=== PATIENT | male | born 1970 | race Two or more races ===

== ENCOUNTER 2016-08-16 17:47 | Inpatient (IN) | payer MEDICARE, OTHER ==
[~2016-08-16] VITALS: Ht 170.2 cm; Wt 63.9 kg
[2016-08-16 19:01] LABS: Urine Bilirubin Negative (Negative); Urine Blood Negative /uL (Negative); Urine Ketone Negative (Negative); Urine Nitrite Negative (Negative); Urine RBC <1 /hpf (0 - 3); Urine Urobilinogen Normal (Negative); Urine pH 7.5 (5.0-8.0)
[2016-08-16 19:09] LABS: Urine Color Straw (Yellow); Urine Glucose 4+ mg/dL (Normal)
[2016-08-16 19:11] LABS: Basophils # (auto) 0 uL; Basophils % (auto) 0.4 % (0.0-2.0); Eosinophils # (auto) 0.1 uL; Hemoglobin 16.4 g/dL (13.5-17.5); Lymphocytes # (auto) 2.4 uL; Lymphocytes % (auto) 34.5 % (10.0-50.0); Mean Corpuscular Hgb Conc. 32.7 g/dL (32.0-36.0); Mean Corpuscular Volume 91.7 fL (80.0-100.0); Mean Platelet Volume 9.6 fL (7.4-10.4); Monocytes # (auto) 0.4 uL; Neutrophils % (auto) 58.1 % (37.0-80.0); Platelet Count (auto) 208 10^3/uL (140-450); White Blood Cell 6.9 10^3/uL (4.4-10.8)
[2016-08-16 19:23] LABS: Albumin 3.7 g/dL (3.4-5.0); Anion Gap 9 (5-15); Aspartate Aminotransferase 81 U/L (15-37); BUN/Creatinine Ratio 7.9; Blood Urea Nitrogen 7 mg/dL (7-18); Calcium 9.2 mg/dL (8.5-10.1); Carbon Dioxide 28 mmol/L (21-32); Chloride 94 mmol/L (98-107); GFR African American 119 mL/min; GFR Non-African American 99 mL/min; Potassium 4.5 mmol/L (3.5-5.1); Salicylate 1.7 mg/dL (2.8-20.0); Sodium 131 mmol/L (136-145)
[2016-08-16 19:26] LABS: Alkaline Phosphatase 227 U/L (45-117); Bilirubin, Total 0.2 mg/dL (0.2-1.0); Total Protein 7.5 g/dL (6.4-8.2)
[2016-08-16 19:30] LABS: Acetaminophen < 2.0 ug/mL (10-30)
[2016-08-16 19:33] LABS: Glucose 610 mg/dL (74-106)
[2016-08-16] MEDS ORDERED: SODIUM CHLORIDE 0.9% 1,000 ML IV ONE (20:15)
[2016-08-16] MEDS ORDERED: InsuLIN REG 1unit/0.01ml Soln (100units/ml) IV ONE (20:15)
[2016-08-16 20:18] LABS: Amylase 65 U/L (25-115)
[2016-08-16] MEDS ORDERED: OLANZapine 5 MG TAB PO ONE (21:30)
[2016-08-16] MEDS: SODIUM CHLORIDE 0.9% 1,000 ML IV SCH (23:35)
[2016-08-16] MEDS ORDERED: NITROGLYCERIN 0.4 MG SL TAB SL PRN (23:45)
[2016-08-16] MEDS ORDERED: DEXTROSE (50%) 50ML SYRG IV PRN (23:45)
[2016-08-16] MEDS ORDERED: LACTULOSE 20Gm/30ML SOLN PO PRN (23:45)
[2016-08-16] MEDS ORDERED: MORPHINE SULF INJ 2 MG/ML SYRINGE 1ML IV PRN (23:45)
[2016-08-17] MEDS: ACCU-CHEK COMFORT CURVE STRIP VI SCH ×6 (02:00→22:11)
[2016-08-17] MEDS: InsuLIN REG 1unit/0.01ml Soln (100units/ml) SC SCH ×6 (02:00→22:10)
[2016-08-17 02:38] VITALS: BP 94/66
[2016-08-17] MEDS: SODIUM CHLORIDE 0.9% 1,000 ML IV SCH ×3 (06:13→22:08)
[2016-08-17 06:30] LABS: Potassium 3.3 mmol/L (3.5-5.1)
[2016-08-17 06:35] LABS: Albumin 2.8 g/dL (3.4-5.0); BUN/Creatinine Ratio 14.3; Calcium 8.2 mg/dL (8.5-10.1)
[2016-08-17 06:37] LABS: Bilirubin, Total 0.3 mg/dL (0.2-1.0); Total Protein 5.8 g/dL (6.4-8.2)
[2016-08-17 06:45] LABS: Hematocrit 40.2 % (41.0-53.0); Hemoglobin 13.1 g/dL (13.5-17.5); Mean Corpuscular Hemoglobin 29.7 pg (28.0-32.0); Mean Corpuscular Hgb Conc. 32.7 g/dL (32.0-36.0); Mean Corpuscular Volume 90.8 fL (80.0-100.0); Mean Platelet Volume 9.8 fL (7.4-10.4); Platelet Count (auto) 189 10^3/uL (140-450); Red Cell Distribution Width 13.9 % (11.6-16.0); White Blood Cell 5.6 10^3/uL (4.4-10.8)
[2016-08-17 06:47] LABS: Metamyelocytes % 0; Myelocytes % 0; Promyelocytes % 0; Reactive Lymphocytes 0
[2016-08-17 08:13] LABS: Large Platelets FEW; Platelet Estimate Adequate
[2016-08-17 08:30] VITALS: BP 106/60
[2016-08-17] MEDS ORDERED: ENOXAPARIN SOD 40 MG/0.4 ML SYRINGE SC SCH (10:00)
[2016-08-17] MEDS ORDERED: ENOXAPARIN SOD 30 MG/0.3 ML SYRINGE SC SCH (10:00)
[2016-08-17] MEDS: OLANZapine 5 MG TAB PO SCH (10:11)
[2016-08-17 11:21] LABS: Hematocrit 38.8 % (41.0-53.0); Hemoglobin 12.6 g/dL (13.5-17.5)
[2016-08-17] MEDS: FREE WATER GT SCH ×3 (14:00→22:09)
[2016-08-17] MEDS: LORazepam 0.5 MG TAB PO PRN (14:13)
[2016-08-17 16:52] LABS: Hematocrit 38.4 % (41.0-53.0); Hemoglobin 12.5 g/dL (13.5-17.5)
[2016-08-17 17:51] VITALS: BP 97/64
[2016-08-17 21:10] VITALS: BP 109/63
[2016-08-18] MEDS: FREE WATER GT SCH ×3 (02:28→10:02)
[2016-08-18] MEDS: InsuLIN REG 1unit/0.01ml Soln (100units/ml) SC SCH ×7 (02:28→22:00)
[2016-08-18] MEDS: ACCU-CHEK COMFORT CURVE STRIP VI SCH ×6 (02:29→21:52)
[2016-08-18 05:10] VITALS: BP 102/69
[2016-08-18] MEDS: SODIUM CHLORIDE 0.9% 1,000 ML IV SCH ×2 (05:17→10:00)
[2016-08-18 08:49] VITALS: BP 112/67
[2016-08-18] MEDS: OLANZapine 5 MG TAB PO SCH (09:44)
[2016-08-18] MEDS: LORazepam 0.5 MG TAB PO PRN ×2 (09:56→18:13)
[2016-08-18] MEDS ORDERED: FOLIC ACID 1 MG in D5W 5% 50 ML IV ONE (10:45)
[2016-08-18] MEDS ORDERED: DEXTROSE (50%) 50ML SYRG IV PRN (10:45)
[2016-08-18] MEDS ORDERED: THIAMINE HCL 100 MG/ML 2ML VIAL IV ONE (10:45)
[2016-08-18] MEDS ORDERED: HALOPERIDOL 5 MG TAB PO ONE (10:45)
[2016-08-18] MEDS: INSULIN DETEMIR(LEVEMIR) 1unit/0.01ml Soln (100units/ml) SC SCH ×3 (11:36→22:00)
[2016-08-18 13:11] VITALS: BP 109/70
[2016-08-18 17:14] VITALS: BP 104/69
[2016-08-18] MEDS: HALOPERIDOL 1 MG TAB PO SCH ×2 (18:09→22:00)
[2016-08-18 20:59] VITALS: BP 119/70
[2016-08-19] MEDS: SODIUM CHLORIDE 0.9% 1,000 ML IV SCH ×2 (02:30→09:25)
[2016-08-19 05:39] VITALS: BP 99/66
[2016-08-19] MEDS: HALOPERIDOL 1 MG TAB PO SCH (05:55)
[2016-08-19] MEDS: LORazepam 0.5 MG TAB PO PRN (05:55)
[2016-08-19 06:19] LABS: Albumin 2.7 g/dL (3.4-5.0); BUN/Creatinine Ratio 16.3; Bilirubin, Total 0.3 mg/dL (0.2-1.0); Calcium 8.4 mg/dL (8.5-10.1); Potassium 3.7 mmol/L (3.5-5.1); Total Protein 5.5 g/dL (6.4-8.2)
[2016-08-19] MEDS: ACCU-CHEK COMFORT CURVE STRIP VI SCH ×2 (06:29→11:12)
[2016-08-19] MEDS: InsuLIN REG 1unit/0.01ml Soln (100units/ml) SC SCH ×2 (06:29→11:53)
[2016-08-19 09:34] VITALS: BP 103/65
[2016-08-19] MEDS: INSULIN DETEMIR(LEVEMIR) 1unit/0.01ml Soln (100units/ml) SC SCH (09:36)
[2016-08-19] MEDS ORDERED: FOLIC ACID 1 MG in D5W 5% 50 ML IV SCH (10:00)
[2016-08-19] MEDS ORDERED: THIAMINE HCL 100 MG/ML 2ML VIAL IV SCH (10:00)
[2016-08-19 12:27] VITALS: BP 108/70
[2016-08-19] MEDS ORDERED: INSULIN DETEMIR(LEVEMIR) 1unit/0.01ml Soln (100units/ml) SC SCH (22:00)
== END 2016-08-19 13:09 | disposition home or self-care (01) | DRG 638 ==
LOC: ER 18:03 → TELE 18:04 → TELE-CENTR 08-17 02:05 → CENTRAL 08-18 23:56
PROVIDERS: ADMIT Family Medicine; ATTEND Internal Medicine
DX: E10.65 Type 1 diabetes mellitus with hyperglycemia (principal); R45.851 Suicidal ideations; E87.0 Hyperosmolality and hypernatremia; F20.9 Schizophrenia, unspecified; F31.9 Bipolar disorder, unspecified; F41.9 Anxiety disorder, unspecified; F17.210 Nicotine dependence, cigarettes, uncomplicated; E86.0 Dehydration; K76.0 Fatty (change of) liver, not elsewhere classified; F10.10 Alcohol abuse, uncomplicated; E87.6 Hypokalemia; Z91.19 Patient's noncompliance with other medical treatment and regimen; I95.9 Hypotension, unspecified
CPT/HCPCS: 36415; 71010; 76705; 80053; 80329; 81001; 82010; 82150; 82962; 83036; 83690; 85007; 85014; 85018; 85025; 85027; 96361; 96374; G0434; J1815; J7060

== ENCOUNTER 2020-03-01 20:13 | Emergency (ER) | payer OTHER ==
[~2020-03-01] VITALS: Ht 170.2 cm; Wt 54.4 kg
[2020-03-01 21:02] VITALS: BP 117/77
== END 2020-03-02 00:38 | disposition home or self-care (01) ==
LOC: ER 20:13
DX: F41.9 Anxiety disorder, unspecified (principal); Z91.14 Patient's other noncompliance with medication regimen; E11.9 Type 2 diabetes mellitus without complications; F17.210 Nicotine dependence, cigarettes, uncomplicated

== ENCOUNTER 2020-05-07 19:05 | Emergency (ER) | payer OTHER ==
[~2020-05-07] VITALS: Ht 170.2 cm; Wt 54.4 kg
[2020-05-07] MEDS ORDERED: IBUPROFEN 400 MG TAB PO ONE (20:45)
[2020-05-07] MEDS ORDERED: HYDROcodone-ACET 5/325MG TAB PO ONE (20:45)
[2020-05-07 21:04] LABS: Basophils # (auto) 0 10 ^3/uL (0-0.2); Basophils % (auto) 0.8 % (0.0-2.0); Eosinophils # (auto) 0.1 10 ^3/uL (0-0.8); Eosinophils % (auto) 2.1 % (0.0-7.0); Hematocrit 43.7 % (41.0-53.0); Hemoglobin 15.1 g/dL (13.5-17.5); Lymphocytes # (auto) 2.1 10 ^3/uL (0.4-5.4); Lymphocytes % (auto) 43.1 % (10.0-50.0); Mean Corpuscular Hemoglobin 30.7 pg (28.0-32.0); Mean Corpuscular Hgb Conc. 34.5 g/dL (32.0-36.0); Mean Corpuscular Volume 88.9 fL (80.0-100.0); Monocytes # (auto) 0.4 10 ^3/uL (0-1.3); Monocytes % (auto) 8.1 % (0.0-12.0); Neutrophils # (auto) 2.3 10 ^3/uL (1.6-8.6); Neutrophils % (auto) 45.9 % (37.0-80.0); Nucleated Red Blood Cells % 0.1 %; Platelet Count (auto) 205 10^3/uL (140-450); Red Blood Cells 4.92 10^6/uL (4.5-5.90); Red Cell Distribution Width 13.1 % (11.8-14.3); White Blood Cell 4.9 10^3/uL (4.4-10.8)
[2020-05-07 21:23] LABS: Alanine Aminotransferase 107 U/L (16-61); Albumin 3.8 g/dL (3.4-5.0); Blood Urea Nitrogen 15 mg/dL (7-18); Carbon Dioxide 30 mmol/L (21-32); Glucose 374 mg/dL (74-106); Magnesium 2.3 mg/dL (1.6-2.6)
[2020-05-07 21:24] LABS: INR 1.08 (0.9-1.15); Partial Thromboplastin Time 26.5 sec (23.0-31.2)
[2020-05-07 21:35] LABS: Chloride 98 mmol/L (98-107); Potassium 3.7 mmol/L (3.5-5.1); Sodium 134 mmol/L (136-145)
[2020-05-07 21:45] LABS: Anion Gap 6 (5-15)
[2020-05-07 22:03] LABS: Alkaline Phosphatase 174 U/L (45-117); Aspartate Aminotransferase 52 U/L (15-37); BUN/Creatinine Ratio 13.6; Bilirubin, Total 0.4 mg/dL (0.2-1.0); GFR African American 92 mL/min; GFR Non-African American 76 mL/min; Total Protein 7.9 g/dL (6.4-8.2)
[2020-05-07 23:45] VITALS: BP 114/63
== END 2020-05-07 23:49 | disposition home or self-care (01) ==
LOC: ER 19:12
DX: S20.212A Contusion of left front wall of thorax, initial encounter (principal); S20.211A Contusion of right front wall of thorax, initial encounter; F17.210 Nicotine dependence, cigarettes, uncomplicated; E11.9 Type 2 diabetes mellitus without complications; W01.0XXA Fall on same level from slipping, tripping and stumbling without subsequent striking against object, initial encounter; Y93.89 Activity, other specified; Y92.89 Other specified places as the place of occurrence of the external cause; Y99.8 Other external cause status
CPT/HCPCS: 36415; 71046; 80053; 83735; 83880; 84484; 85025; 85610; 85730; 93005

== ENCOUNTER 2020-05-21 15:58 | Emergency (ER) | payer OTHER ==
[~2020-05-21] VITALS: Ht 162.6 cm; Wt 56.7 kg
[2020-05-21 16:48] VITALS: BP 124/77
[2020-05-21 18:32] LABS: Salicylate < 1.7 mg/dL (2.8-20.0)
[2020-05-21 18:33] LABS: Acetaminophen < 2.0 ug/mL (10-30)
== END 2020-05-22 04:47 | disposition home or self-care (01) ==
LOC: ER 15:58
DX: R45.851 Suicidal ideations (principal); F41.9 Anxiety disorder, unspecified; F17.210 Nicotine dependence, cigarettes, uncomplicated; E11.9 Type 2 diabetes mellitus without complications
CPT/HCPCS: 36415; 80320; 80329

== ENCOUNTER 2020-05-27 10:41 | Emergency (ER) | payer OTHER ==
[~2020-05-27] VITALS: Ht 170.2 cm; Wt 54.4 kg
[2020-05-27 11:12] VITALS: BP 102/71
[2020-05-27 12:00] LABS: Alcohol, Urine < 3.0 mg/dL (0-10); Amphetamine Screen, Urine NEGATIVE (NEGATIVE); Barbiturate Scree,Urine NEGATIVE (NEGATIVE); Benzodiazephine Screen, Urine NEGATIVE (NEGATIVE); Cannabinoid Screen, Urine NEGATIVE (NEGATIVE); Cocaine Screen, Urine NEGATIVE (NEGATIVE); Opiate Scree,Urine NEGATIVE (NEGATIVE); Phencyclidine Screen, Urine NEGATIVE (NEGATIVE)
== END 2020-05-27 19:04 | disposition left against medical advice (07) ==
LOC: ER 10:41
DX: F20.9 Schizophrenia, unspecified (principal); F17.210 Nicotine dependence, cigarettes, uncomplicated; E11.9 Type 2 diabetes mellitus without complications
CPT/HCPCS: 36415; 80307; 80320

== ENCOUNTER 2020-09-04 13:15 | Emergency (ER) | payer OTHER ==
[~2020-09-04] VITALS: Ht 170.2 cm; Wt 54.4 kg
[2020-09-04 14:09] LABS: Basophils # (auto) 0.1 10 ^3/uL (0-0.2); Basophils % (auto) 1.5 % (0.0-2.0); Eosinophils # (auto) 0.1 10 ^3/uL (0-0.8); Eosinophils % (auto) 1.2 % (0.0-7.0); Hematocrit 40.3 % (41.0-53.0); Hemoglobin 13.6 g/dL (13.5-17.5); Lymphocytes # (auto) 1.8 10 ^3/uL (0.4-5.4); Lymphocytes % (auto) 38.7 % (10.0-50.0); Mean Corpuscular Hemoglobin 30.3 pg (28.0-32.0); Mean Corpuscular Hgb Conc. 33.8 g/dL (32.0-36.0); Mean Corpuscular Volume 89.7 fL (80.0-100.0); Monocytes # (auto) 0.4 10 ^3/uL (0-1.3); Monocytes % (auto) 7.8 % (0.0-12.0); Neutrophils # (auto) 2.3 10 ^3/uL (1.6-8.6); Neutrophils % (auto) 50.8 % (37.0-80.0); Platelet Count (auto) 226 10^3/uL (140-450); Red Blood Cells 4.49 10^6/uL (4.5-5.90); Red Cell Distribution Width 12.8 % (11.8-14.3); White Blood Cell 4.5 10^3/uL (4.4-10.8)
[2020-09-04 14:14] LABS: Urine Bacteria NONE SEEN /hpf (None Seen); Urine Blood Negative /uL (Negative); Urine Specific Gravity 1.039 (1.001-1.035); Urine WBC 1 /hpf (0 - 3)
[2020-09-04 14:31] LABS: Albumin 3.6 g/dL (3.4-5.0); Anion Gap 5 (5-15); Blood Urea Nitrogen 8 mg/dL (7-18); Carbon Dioxide 29 mmol/L (21-32); Chloride 97 mmol/L (98-107); Potassium 4.4 mmol/L (3.5-5.1); Sodium 131 mmol/L (136-145)
[2020-09-04 14:35] LABS: Alanine Aminotransferase 102 U/L (16-61); Alkaline Phosphatase 174 U/L (45-117); Aspartate Aminotransferase 63 U/L (15-37); BUN/Creatinine Ratio 10.4; Bilirubin, Total 0.5 mg/dL (0.2-1.0); Blood Alcohol < 3.0 mg/dL (0-5); GFR African American 139 mL/min; GFR Non-African American 115 mL/min; Total Protein 7.7 g/dL (6.4-8.2)
[2020-09-04] MEDS ORDERED: LORazepam 0.5 MG TAB PO ONE (15:00)
[2020-09-04 15:02] LABS: Acetaminophen < 2.0 ug/mL (10-30); Salicylate < 1.7 mg/dL (2.8-20.0)
[2020-09-04 15:14] LABS: Glucose 414 mg/dL (74-106)
[2020-09-04] MEDS ORDERED: SODIUM CHLORIDE 0.9% 1,000 ML IV ONE (15:30)
[2020-09-04 15:52] LABS: Alcohol, Urine < 3.0 mg/dL (0-10); Amphetamine Screen, Urine NEGATIVE (NEGATIVE); Barbiturate Scree,Urine NEGATIVE (NEGATIVE); Benzodiazephine Screen, Urine NEGATIVE (NEGATIVE); Cannabinoid Screen, Urine POSITIVE (NEGATIVE); Cocaine Screen, Urine NEGATIVE (NEGATIVE); Opiate Scree,Urine NEGATIVE (NEGATIVE); Phencyclidine Screen, Urine NEGATIVE (NEGATIVE)
[2020-09-04] MEDS ORDERED: InsuLIN REG 1unit/0.01ml Soln (100units/ml) IV ONE (17:00)
[2020-09-04] MEDS ORDERED: cefTRIAXone 1GM/50ML D5W 50 ML IV ONE (17:00)
[2020-09-04] MEDS ORDERED: DEXTROSE (50%) 50ML SYRG IV ONE (18:45)
[2020-09-04] MEDS ORDERED: ACCU-CHEK COMFORT CURVE STRIP VI ONE (22:00)
[2020-09-04] MEDS ORDERED: InsuLIN REG 1unit/0.01ml Soln (100units/ml) SC ONE (22:00)
[2020-09-05] MEDS ORDERED: LORazepam 2MG/ML-1ML VIAL IM ONE (09:30)
[2020-09-06] MEDS ORDERED: HALOPERIDOL LACTATE 5 MG/ML INJ VIAL IM PRN (00:15)
[2020-09-06] MEDS ORDERED: LORazepam 2MG/ML-1ML VIAL IM PRN (00:15)
[2020-09-06] MEDS ORDERED: OLANZapine 5 MG TAB PO SCH ×2 (07:00→18:00)
[2020-09-06] MEDS ORDERED: InsuLIN REG 1unit/0.01ml Soln (100units/ml) SC ONE (15:15)
[2020-09-06 16:00] VITALS: BP 92/64
== END 2020-09-06 16:09 ==
LOC: ER 13:15
DX: R45.850 Homicidal ideations (principal); F41.9 Anxiety disorder, unspecified; N39.0 Urinary tract infection, site not specified; E10.65 Type 1 diabetes mellitus with hyperglycemia; F20.9 Schizophrenia, unspecified; F31.9 Bipolar disorder, unspecified; F17.210 Nicotine dependence, cigarettes, uncomplicated; Z20.822 Contact with and (suspected) exposure to COVID-19
CPT/HCPCS: 36415; 71045; 80053; 80307; 80320; 80329; 81001; 82962; 85025; 87426; 96361; 96365; 96366; 96372; 99285; C9803; J0696; J7030; U0003

== ENCOUNTER 2020-10-07 22:00 | Emergency (ER) | payer OTHER ==
[~2020-10-07] VITALS: Ht 170.2 cm; Wt 56.7 kg
[2020-10-07 23:31] LABS: Basophils # (auto) 0 10 ^3/uL (0-0.2); Basophils % (auto) 0.6 % (0.0-2.0); Eosinophils # (auto) 0.1 10 ^3/uL (0-0.8); Eosinophils % (auto) 1.7 % (0.0-7.0); Hematocrit 42.3 % (41.0-53.0); Hemoglobin 13.8 g/dL (13.5-17.5); Lymphocytes # (auto) 1.9 10 ^3/uL (0.4-5.4); Lymphocytes % (auto) 24.1 % (10.0-50.0); Mean Corpuscular Hemoglobin 29.9 pg (28.0-32.0); Mean Corpuscular Hgb Conc. 32.7 g/dL (32.0-36.0); Mean Corpuscular Volume 91.7 fL (80.0-100.0); Monocytes # (auto) 0.6 10 ^3/uL (0-1.3); Monocytes % (auto) 8.3 % (0.0-12.0); Neutrophils # (auto) 5.1 10 ^3/uL (1.6-8.6); Neutrophils % (auto) 65.3 % (37.0-80.0); Nucleated Red Blood Cells % 0.1 %; Platelet Count (auto) 279 10^3/uL (140-450); Red Blood Cells 4.61 10^6/uL (4.5-5.90); Red Cell Distribution Width 13.2 % (11.8-14.3); White Blood Cell 7.8 10^3/uL (4.4-10.8)
[2020-10-07 23:49] LABS: Albumin 3.5 g/dL (3.4-5.0); Potassium 4.4 mmol/L (3.5-5.1)
[2020-10-07 23:51] LABS: Bilirubin, Total 0.4 mg/dL (0.2-1.0); Total Protein 8.2 g/dL (6.4-8.2)
[2020-10-08] MEDS ORDERED: VANCOMYCIN 1GM/250ML 250 ML IV ONE (02:45)
[2020-10-08] MEDS ORDERED: VANCOMYCIN 500MG/100ML D5W 100 ML IV ONE (02:45)
[2020-10-08] MEDS ORDERED: PIPERACILLIN-TAZO 4.5GM 100 ML IV ONE (02:45)
[2020-10-08] MEDS ORDERED: InsuLIN REG 1unit/0.01ml Soln (100units/ml) IV ONE (03:30)
[2020-10-08 05:00] VITALS: BP 102/70
== END 2020-10-08 05:25 | disposition home or self-care (01) ==
LOC: ER 22:05
DX: E11.621 Type 2 diabetes mellitus with foot ulcer (principal); F17.210 Nicotine dependence, cigarettes, uncomplicated; F12.10 Cannabis abuse, uncomplicated; Z20.822 Contact with and (suspected) exposure to COVID-19
CPT/HCPCS: 36415; 36600; 73700; 80053; 82010; 82805; 82962; 83605; 85025; 85652; 87426; 96365; 96375; 99285; C9803; J3370; U0003

== ENCOUNTER 2020-10-17 10:21 | Inpatient (IN) | payer OTHER ==
[~2020-10-17] VITALS: Ht 170.2 cm; Wt 66.1 kg
[2020-10-17] MEDS ORDERED: SODIUM CHLORIDE 0.9% 1,000 ML IV ONE (11:30)
[2020-10-17] MEDS ORDERED: SODIUM CHLORIDE 0.9% 500 ML IV ONE (11:30)
[2020-10-17 11:56] LABS: Basophils # (auto) 0 10 ^3/uL (0-0.2); Basophils % (auto) 0.7 % (0.0-2.0); Eosinophils # (auto) 0.2 10 ^3/uL (0-0.8); Eosinophils % (auto) 2.6 % (0.0-7.0); Hemoglobin 12.9 g/dL (13.5-17.5); Lymphocytes # (auto) 2.1 10 ^3/uL (0.4-5.4); Lymphocytes % (auto) 31.2 % (10.0-50.0); Mean Corpuscular Hemoglobin 29.6 pg (28.0-32.0); Mean Corpuscular Hgb Conc. 33.9 g/dL (32.0-36.0); Mean Corpuscular Volume 87.6 fL (80.0-100.0); Monocytes # (auto) 0.5 10 ^3/uL (0-1.3); Monocytes % (auto) 7.6 % (0.0-12.0); Neutrophils # (auto) 3.9 10 ^3/uL (1.6-8.6); Neutrophils % (auto) 57.9 % (37.0-80.0); Nucleated Red Blood Cells % 0.1 %; Red Blood Cells 4.34 10^6/uL (4.5-5.90); Red Cell Distribution Width 13.2 % (11.8-14.3); White Blood Cell 6.7 10^3/uL (4.4-10.8)
[2020-10-17 12:19] LABS: INR 1.03 (0.9-1.15); Partial Thromboplastin Time 28.4 sec (23.0-31.2)
[2020-10-17 12:20] LABS: Potassium 4.4 mmol/L (3.5-5.1)
[2020-10-17 12:26] LABS: Bilirubin, Total 0.4 mg/dL (0.2-1.0); Calcium 9.2 mg/dL (8.5-10.1); Magnesium 2.2 mg/dL (1.6-2.6); Total Protein 7.6 g/dL (6.4-8.2)
[2020-10-17] MEDS ORDERED: InsuLIN REG 1unit/0.01ml Soln (100units/ml) IV ONE (13:15)
[2020-10-17] MEDS ORDERED: CLINDAMYCIN 900MG IV 50 ML IV ONE (13:15)
[2020-10-17 14:07] LABS: Urine Bacteria NONE SEEN /hpf (None Seen); Urine Blood Negative /uL (Negative); Urine Specific Gravity 1.031 (1.001-1.035); Urine WBC 1 /hpf (0 - 3)
[2020-10-17] MEDS ORDERED: ACETAMINOPHEN 500 MG TAB PO PRN (16:00)
[2020-10-17] MEDS ORDERED: MORPHINE SULFATE INJECTION 2 MG/ML SYRG IV PRN ×2 (16:00)
[2020-10-17] MEDS ORDERED: NITROGLYCERIN 0.4 MG SL TAB SL PRN (16:00)
[2020-10-17] MEDS: cefTRIAXone 1GM/50ML D5W 50 ML IV SCH (16:20)
[2020-10-17] MEDS ORDERED: METF-372 PO (17:48)
[2020-10-17] MEDS ORDERED: INSREG3 SC (17:50)
[2020-10-17] MEDS ORDERED: DEXTROSE (50%) 50ML SYRG IV PRN ×2 (19:15→22:30)
[2020-10-17 22:00] VITALS: BP 109/72
[2020-10-17] MEDS ORDERED: ACCU-CHEK COMFORT CURVE STRIP VI SCH (22:00)
[2020-10-17] MEDS ORDERED: InsuLIN REG 1unit/0.01ml Soln (100units/ml) SC SCH (22:00)
[2020-10-17] MEDS: metroNIDAZOLE 500MG/100ML 100 ML IV SCH (22:05)
[2020-10-17] MEDS: CLINDAMYCIN 300MG IV 50 ML IV SCH (22:05)
[2020-10-17] MEDS: FAMOTIDINE 20 MG TAB PO SCH (22:05)
[2020-10-17 22:46] VITALS: BP 109/72
[2020-10-18] MEDS: ACCU-CHEK COMFORT CURVE STRIP VI SCH ×5 (00:04→22:00)
[2020-10-18] MEDS: InsuLIN REG 1unit/0.01ml Soln (100units/ml) SC SCH ×4 (00:06→17:32)
[2020-10-18] MEDS ORDERED: INFLUENZA QUAD 2020-2021 0.5 ML SYRG IM ONE (00:45)
[2020-10-18 05:00] VITALS: BP 90/51
[2020-10-18] MEDS: metroNIDAZOLE 500MG/100ML 100 ML IV SCH ×3 (05:48→23:01)
[2020-10-18] MEDS: CLINDAMYCIN 300MG IV 50 ML IV SCH ×3 (05:49→23:01)
[2020-10-18 06:53] LABS: Basophils # (auto) 0 10 ^3/uL (0-0.2); Basophils % (auto) 0.6 % (0.0-2.0); Eosinophils # (auto) 0.3 10 ^3/uL (0-0.8); Eosinophils % (auto) 4.4 % (0.0-7.0); Hematocrit 37.8 % (41.0-53.0); Hemoglobin 12.9 g/dL (13.5-17.5); Lymphocytes # (auto) 2.4 10 ^3/uL (0.4-5.4); Lymphocytes % (auto) 40.7 % (10.0-50.0); Mean Corpuscular Volume 88.2 fL (80.0-100.0); Monocytes # (auto) 0.5 10 ^3/uL (0-1.3); Monocytes % (auto) 9.3 % (0.0-12.0); Neutrophils # (auto) 2.6 10 ^3/uL (1.6-8.6); Red Blood Cells 4.29 10^6/uL (4.5-5.90); Red Cell Distribution Width 13.2 % (11.8-14.3); White Blood Cell 5.8 10^3/uL (4.4-10.8)
[2020-10-18] MEDS ORDERED: InsuLIN REG 1unit/0.01ml Soln (100units/ml) SC SCH (07:00)
[2020-10-18 07:06] LABS: BUN/Creatinine Ratio 28.3; Calcium 9.1 mg/dL (8.5-10.1); Potassium 3.8 mmol/L (3.5-5.1)
[2020-10-18] MEDS: cefTRIAXone 1GM/50ML D5W 50 ML IV SCH (08:58)
[2020-10-18] MEDS: FAMOTIDINE 20 MG TAB PO SCH ×2 (08:58→23:01)
[2020-10-18 09:00] VITALS: BP 106/66
[2020-10-18 13:00] VITALS: BP 108/74
[2020-10-18] MEDS ORDERED: DEXTROSE (50%) 50ML SYRG IV PRN (13:30)
[2020-10-18 17:28] VITALS: BP 117/82
[2020-10-18] MEDS: metFORMIN HYDROCHLORIDE 500 MG TAB PO SCH (17:30)
[2020-10-18 22:00] VITALS: BP 110/70
[2020-10-19] VITALS (16 sets, daily range): BP systolic 97–125; BP diastolic 59–88
[2020-10-19] MEDS: INSULIN LANTUS (GLARGINE) 1 /0.01ml (100units/ml) SC SCH ×2 (00:30→21:48)
[2020-10-19] MEDS: InsuLIN REG 1unit/0.01ml Soln (100units/ml) SC SCH ×6 (00:30→21:52)
[2020-10-19] MEDS: CLINDAMYCIN 300MG IV 50 ML IV SCH ×3 (07:02→22:04)
[2020-10-19] MEDS: metroNIDAZOLE 500MG/100ML 100 ML IV SCH ×3 (07:02→22:05)
[2020-10-19] MEDS: ACCU-CHEK COMFORT CURVE STRIP VI SCH ×4 (07:02→21:39)
[2020-10-19] MEDS ORDERED: PROPOFOL 10 MG/ML 20 ML IV ONE (07:49)
[2020-10-19] MEDS ORDERED: ONDANSETRON HCL 4 MG/2 ML VIAL ONE (07:49)
[2020-10-19] MEDS ORDERED: MIDAZOLAM HCL 2MG/2ML 2ml VIAL (1mg/ml) ONE (07:49)
[2020-10-19] MEDS ORDERED: LIDOCAINE 2% (LOCAL ANESTH.) PF 5ml SDV ONE (07:49)
[2020-10-19] MEDS ORDERED: fentaNYL CITRATE 100 MCG/2 ML VL ONE (07:49)
[2020-10-19] MEDS ORDERED: GLYCOPYRROLATE 0.2 MG/ML 1ML VIAL ONE (07:49)
[2020-10-19] MEDS ORDERED: ePHEDrine SULFATE 50 MG/ML AMP ONE (07:49)
[2020-10-19] MEDS: metFORMIN HYDROCHLORIDE 500 MG TAB PO SCH ×2 (08:00→18:12)
[2020-10-19] MEDS ORDERED: NEOMYCIN-BACITRACIN-POLYM 15GM TOP OINT TOP ONE (08:12)
[2020-10-19] MEDS ORDERED: ROPIVACAINE 0.5% (5MG/ML) 20ML AMPULE IJ ONE (08:12)
[2020-10-19] MEDS ORDERED: ceFAZolin 1GM VL ONE (08:12)
[2020-10-19] MEDS ORDERED: TETRACAINE 1% INJ 2 ML VIAL IJ ONE (08:24)
[2020-10-19] MEDS ORDERED: MORPHINE SULF PF 2 MG/2 ML SYRG ONE (08:25)
[2020-10-19] MEDS ORDERED: ceFAZolin 1GM/50ML 50 ML IV ONE (08:26)
[2020-10-19] MEDS ORDERED: KETOROLAC TROMETH 30 MG/ML 1ML VIAL ONE (08:56)
[2020-10-19] MEDS ORDERED: NALOXONE HCL 0.4 MG/ML VIAL IV PRN (09:30)
[2020-10-19] MEDS ORDERED: ONDANSETRON HCL 4 MG/2 ML VIAL IV PRN ×2 (09:30)
[2020-10-19] MEDS ORDERED: DexAMETHasone SOD PHOS 10MG/1ML VIAL INJ IV PRN (09:30)
[2020-10-19] MEDS ORDERED: ACCU-CHEK COMFORT CURVE STRIP VI ONE (09:30)
[2020-10-19] MEDS ORDERED: NALBUPHINE HCL 10 MG/1ml INJECTION SUBCUT ONE (09:30)
[2020-10-19] MEDS: cefTRIAXone 1GM/50ML D5W 50 ML IV SCH (11:01)
[2020-10-19] MEDS: FAMOTIDINE 20 MG TAB PO SCH ×2 (11:01→22:05)
[2020-10-19 12:12] LABS: Hepatitis B Surface Antibody Negative
[2020-10-19 13:23] LABS: Hepatitis B Surface Antigen Negative (Negative)
[2020-10-19] MEDS: diphenhdrAMINE HCL 50 MG/1 ML VL IV PRN (14:42)
[2020-10-19] MEDS: KETOROLAC TROMETH 30 MG/ML 1ML VIAL IV PRN ×2 (14:43→21:38)
[2020-10-20] VITALS (14 sets, daily range): BP systolic 100–141; BP diastolic 66–99
[2020-10-20] MEDS: diphenhdrAMINE HCL 50 MG/1 ML VL IV PRN (01:48)
[2020-10-20] MEDS: metroNIDAZOLE 500MG/100ML 100 ML IV SCH ×3 (05:15→21:50)
[2020-10-20] MEDS: CLINDAMYCIN 300MG IV 50 ML IV SCH ×3 (05:15→21:50)
[2020-10-20] MEDS: ACCU-CHEK COMFORT CURVE STRIP VI SCH ×4 (05:16→21:51)
[2020-10-20] MEDS: InsuLIN REG 1unit/0.01ml Soln (100units/ml) SC SCH ×4 (05:17→21:57)
[2020-10-20] MEDS: FAMOTIDINE 20 MG TAB PO SCH ×2 (09:16→21:50)
[2020-10-20] MEDS: metFORMIN HYDROCHLORIDE 500 MG TAB PO SCH ×2 (09:18→17:12)
[2020-10-20] MEDS: cefTRIAXone 1GM/50ML D5W 50 ML IV SCH (09:21)
[2020-10-20] MEDS: KETOROLAC TROMETH 30 MG/ML 1ML VIAL IV PRN (09:29)
[2020-10-20] MEDS: SODIUM CHLOR 0.9% PF (SALINE LOCK) 10ML VIAL/SYR IV SCH (21:50)
[2020-10-20] MEDS: HYDROcodone-ACET 5/325MG TAB PO PRN (21:52)
[2020-10-20] MEDS: INSULIN LANTUS (GLARGINE) 1 /0.01ml (100units/ml) SC SCH (22:01)
[2020-10-21 05:00] VITALS: BP 112/71
[2020-10-21] MEDS: ACCU-CHEK COMFORT CURVE STRIP VI SCH ×4 (05:44→22:17)
[2020-10-21] MEDS: CLINDAMYCIN 300MG IV 50 ML IV SCH ×2 (05:45→13:50)
[2020-10-21] MEDS: metroNIDAZOLE 500MG/100ML 100 ML IV SCH ×2 (05:45→13:50)
[2020-10-21] MEDS: InsuLIN REG 1unit/0.01ml Soln (100units/ml) SC SCH ×4 (05:57→22:18)
[2020-10-21 07:42] LABS: Basophils # (auto) 0 10 ^3/uL (0-0.2); Basophils % (auto) 0.5 % (0.0-2.0); Eosinophils # (auto) 0.3 10 ^3/uL (0-0.8); Eosinophils % (auto) 3.2 % (0.0-7.0); Hematocrit 37.7 % (41.0-53.0); Hemoglobin 12.5 g/dL (13.5-17.5); Lymphocytes # (auto) 1.8 10 ^3/uL (0.4-5.4); Lymphocytes % (auto) 22.4 % (10.0-50.0); Mean Corpuscular Hemoglobin 29.5 pg (28.0-32.0); Mean Corpuscular Hgb Conc. 33.1 g/dL (32.0-36.0); Mean Corpuscular Volume 89.3 fL (80.0-100.0); Monocytes # (auto) 0.7 10 ^3/uL (0-1.3); Monocytes % (auto) 8.9 % (0.0-12.0); Neutrophils # (auto) 5.3 10 ^3/uL (1.6-8.6); Red Blood Cells 4.22 10^6/uL (4.5-5.90); Red Cell Distribution Width 13.3 % (11.8-14.3); White Blood Cell 8.1 10^3/uL (4.4-10.8)
[2020-10-21 07:59] LABS: BUN/Creatinine Ratio 28.6; Calcium 8.7 mg/dL (8.5-10.1); Potassium 4.4 mmol/L (3.5-5.1)
[2020-10-21] MEDS: metFORMIN HYDROCHLORIDE 500 MG TAB PO SCH ×2 (08:19→17:38)
[2020-10-21 09:00] VITALS: BP 110/75
[2020-10-21] MEDS: FAMOTIDINE 20 MG TAB PO SCH ×2 (09:12→22:16)
[2020-10-21] MEDS: SODIUM CHLOR 0.9% PF (SALINE LOCK) 10ML VIAL/SYR IV SCH ×2 (09:13→22:16)
[2020-10-21] MEDS: cefTRIAXone 1GM/50ML D5W 50 ML IV SCH (09:13)
[2020-10-21 13:00] VITALS: BP 116/78
[2020-10-21] MEDS ORDERED: VANCOMYCIN PER PHARMACY 0 MG IV SCH (15:45)
[2020-10-21] MEDS ORDERED: VANCOMYCIN 1GM/250ML 250 ML IV ONE (15:45)
[2020-10-21 17:00] VITALS: BP 118/79
[2020-10-21] MEDS: HYDROcodone-ACET 5/325MG TAB PO PRN (17:38)
[2020-10-21 22:00] VITALS: BP 110/72
[2020-10-21] MEDS: INSULIN LANTUS (GLARGINE) 1 /0.01ml (100units/ml) SC SCH (22:18)
[2020-10-22] MEDS: VANCOMYCIN 1GM/250ML 250 ML IV SCH ×2 (00:02→09:11)
[2020-10-22 05:23] VITALS: BP 100/67
[2020-10-22] MEDS: ACCU-CHEK COMFORT CURVE STRIP VI SCH ×4 (06:04→22:33)
[2020-10-22] MEDS: InsuLIN REG 1unit/0.01ml Soln (100units/ml) SC SCH ×4 (06:05→22:33)
[2020-10-22 09:00] VITALS: BP 104/67
[2020-10-22] MEDS: FAMOTIDINE 20 MG TAB PO SCH ×2 (09:09→22:33)
[2020-10-22] MEDS: HYDROcodone-ACET 5/325MG TAB PO PRN ×2 (09:10→22:33)
[2020-10-22] MEDS: metFORMIN HYDROCHLORIDE 500 MG TAB PO SCH ×2 (09:11→18:06)
[2020-10-22] MEDS: cefTRIAXone 1GM/50ML D5W 50 ML IV SCH (11:29)
[2020-10-22] MEDS: SODIUM CHLOR 0.9% PF (SALINE LOCK) 10ML VIAL/SYR IV SCH ×2 (13:16→22:33)
[2020-10-22 13:34] VITALS: BP 118/78
[2020-10-22 16:26] LABS: Basophils # (auto) 0.1 10 ^3/uL (0-0.2); Basophils % (auto) 0.7 % (0.0-2.0); Eosinophils # (auto) 0.2 10 ^3/uL (0-0.8); Hematocrit 40.9 % (41.0-53.0); Hemoglobin 13.7 g/dL (13.5-17.5); Lymphocytes # (auto) 2.2 10 ^3/uL (0.4-5.4); Lymphocytes % (auto) 28.5 % (10.0-50.0); Mean Corpuscular Hemoglobin 29.7 pg (28.0-32.0); Mean Corpuscular Hgb Conc. 33.4 g/dL (32.0-36.0); Monocytes # (auto) 0.8 10 ^3/uL (0-1.3); Monocytes % (auto) 9.6 % (0.0-12.0); Neutrophils # (auto) 4.6 10 ^3/uL (1.6-8.6); Neutrophils % (auto) 58.2 % (37.0-80.0); Nucleated Red Blood Cells % 0.1 %; Red Cell Distribution Width 12.9 % (11.8-14.3); White Blood Cell 7.8 10^3/uL (4.4-10.8)
[2020-10-22] MEDS: LINEZOLID 600MG/300ML 300 ML IV SCH (16:59)
[2020-10-22 17:00] VITALS: BP 119/79
[2020-10-22 22:00] VITALS: BP 113/75
[2020-10-22] MEDS: INSULIN LANTUS (GLARGINE) 1 /0.01ml (100units/ml) SC SCH (22:34)
[2020-10-23 05:00] VITALS: BP 108/47
[2020-10-23] MEDS: LINEZOLID 600MG/300ML 300 ML IV SCH ×2 (05:30→16:59)
[2020-10-23] MEDS: ACCU-CHEK COMFORT CURVE STRIP VI SCH ×4 (06:56→21:51)
[2020-10-23] MEDS: InsuLIN REG 1unit/0.01ml Soln (100units/ml) SC SCH ×4 (06:56→21:37)
[2020-10-23] MEDS: HYDROcodone-ACET 5/325MG TAB PO PRN ×3 (08:14→21:33)
[2020-10-23] MEDS: metFORMIN HYDROCHLORIDE 500 MG TAB PO SCH ×2 (08:14→17:04)
[2020-10-23] MEDS: FAMOTIDINE 20 MG TAB PO SCH ×2 (08:14→21:33)
[2020-10-23] MEDS: SODIUM CHLOR 0.9% PF (SALINE LOCK) 10ML VIAL/SYR IV SCH ×2 (08:14→21:35)
[2020-10-23 09:00] VITALS: BP 107/73
[2020-10-23] MEDS: SODIUM CHLORIDE 0.9% 1,000 ML IV SCH (13:45)
[2020-10-23 16:58] VITALS: BP 97/67
[2020-10-23] MEDS: INSULIN LANTUS (GLARGINE) 1 /0.01ml (100units/ml) SC SCH (21:37)
[2020-10-23 22:00] VITALS: BP 123/78
[2020-10-24] MEDS: SODIUM CHLORIDE 0.9% 1,000 ML IV SCH (03:05)
[2020-10-24 05:00] VITALS: BP 95/65
[2020-10-24] MEDS: LINEZOLID 600MG/300ML 300 ML IV SCH (05:06)
[2020-10-24] MEDS: HYDROcodone-ACET 5/325MG TAB PO PRN (06:34)
[2020-10-24] MEDS: InsuLIN REG 1unit/0.01ml Soln (100units/ml) SC SCH ×2 (06:36→11:40)
[2020-10-24] MEDS: ACCU-CHEK COMFORT CURVE STRIP VI SCH ×2 (06:46→11:39)
[2020-10-24 09:00] VITALS: BP 109/71
[2020-10-24] MEDS: FAMOTIDINE 20 MG TAB PO SCH (09:58)
[2020-10-24] MEDS: metFORMIN HYDROCHLORIDE 500 MG TAB PO SCH (09:58)
[2020-10-24] MEDS: SODIUM CHLOR 0.9% PF (SALINE LOCK) 10ML VIAL/SYR IV SCH (09:59)
[2020-10-24 12:07] VITALS: BP 109/71
[2020-10-24 13:00] VITALS: BP 113/83
== END 2020-10-24 13:15 | disposition home health service (06) | DRG 617 ==
LOC: ER 10:21 → TELE 15:51 → TELE-EAST 20:36 → TELE-WESTW 10-18 14:20
PROVIDERS: ADMIT Nurse Practitioner Acute Care; ATTEND Internal Medicine Geriatric Medicine
PROC: 0LBW0ZZ Excision of Left Foot Tendon, Open Approach (ICD-10-PCS; 2020-10-19)
PROC: 0Y6N0ZB Detachment at Left Foot, Partial 2nd Ray, Open Approach (ICD-10-PCS; principal; 2020-10-19 08:26)
PROC: 02HV33Z Insertion of Infusion Device into Superior Vena Cava, Percutaneous Approach (ICD-10-PCS; 2020-10-20)
PROC: B548ZZA Ultrasonography of Superior Vena Cava, Guidance (ICD-10-PCS; 2020-10-20)
DX: E11.69 Type 2 diabetes mellitus with other specified complication (principal); E44.0 Moderate protein-calorie malnutrition; R64 Cachexia; L03.116 Cellulitis of left lower limb; M86.8X6 Other osteomyelitis, lower leg; L02.512 Cutaneous abscess of left hand; E11.621 Type 2 diabetes mellitus with foot ulcer; Z20.822 Contact with and (suspected) exposure to COVID-19; E11.65 Type 2 diabetes mellitus with hyperglycemia; R74.8 Abnormal levels of other serum enzymes; B95.2 Enterococcus as the cause of diseases classified elsewhere; F12.10 Cannabis abuse, uncomplicated; F17.210 Nicotine dependence, cigarettes, uncomplicated; Z79.4 Long term (current) use of insulin; Z23 Encounter for immunization; Z91.14 Patient's other noncompliance with medication regimen; Z79.899 Other long term (current) drug therapy; Z68.22 Body mass index [BMI] 22.0-22.9, adult
CPT/HCPCS: 36415; 36569; 71045; 71046; 73700; 73718; 80048; 80053; 81001; 82565; 82962; 83036; 83735; 85025; 85610; 85730; 86141; 86703; 86706; 86803; 87070; 87075; 87077; 87186; 87205; 87340; 87426; 93005; 93926; 96361; 96365; 96368; 96375; G0378; J0690; J0696; J1815; J1885; J2001; J2250; J2405; J2704; J3490

== ENCOUNTER → 2020-11-11 | Emergency (ER) | payer OTHER ==
[~2020-11-11] VITALS: Ht 165.1 cm; Wt 54.4 kg
[~2020-11-11] MED LIST: INSREG3 SC; METF-372 PO
[2020-11-11 20:59] VITALS: BP 91/64
== END | disposition left against medical advice (07) ==
LOC: ER 20:55
DX: M79.602 Pain in left arm (principal); Z53.21 Procedure and treatment not carried out due to patient leaving prior to being seen by health care provider

== ENCOUNTER 2020-11-12 07:57 | Emergency (ER) | payer OTHER ==
[~2020-11-12] VITALS: Ht 170.2 cm; Wt 54.4 kg
[2020-11-12] MEDS ORDERED: SODIUM CHLORIDE 0.9% 1,000 ML IV ONE ×2 (08:30)
[2020-11-12 08:49] LABS: Basophils # (auto) 0.1 10 ^3/uL (0-0.2); Basophils % (auto) 0.9 % (0.0-2.0); Eosinophils # (auto) 0.1 10 ^3/uL (0-0.8); Eosinophils % (auto) 1.3 % (0.0-7.0); Hematocrit 42.2 % (41.0-53.0); Hemoglobin 14.2 g/dL (13.5-17.5); Lymphocytes # (auto) 1.6 10 ^3/uL (0.4-5.4); Lymphocytes % (auto) 23.7 % (10.0-50.0); Mean Corpuscular Hemoglobin 29.6 pg (28.0-32.0); Mean Corpuscular Hgb Conc. 33.7 g/dL (32.0-36.0); Monocytes # (auto) 0.6 10 ^3/uL (0-1.3); Monocytes % (auto) 8.7 % (0.0-12.0); Neutrophils # (auto) 4.4 10 ^3/uL (1.6-8.6); Neutrophils % (auto) 65.4 % (37.0-80.0); Nucleated Red Blood Cells % 0.1 %; Platelet Count (auto) 210 10^3/uL (140-450); Red Blood Cells 4.79 10^6/uL (4.5-5.90); Red Cell Distribution Width 14.1 % (11.8-14.3); White Blood Cell 6.7 10^3/uL (4.4-10.8)
[2020-11-12 09:13] LABS: Albumin 3.5 g/dL (3.4-5.0); Anion Gap 11 (5-15); Blood Urea Nitrogen 27 mg/dL (7-18); Calcium 9.4 mg/dL (8.5-10.1); Carbon Dioxide 24 mmol/L (21-32); Chloride 95 mmol/L (98-107); GFR African American 120 mL/min; GFR Non-African American 100 mL/min; Glucose 335 mg/dL (74-106); Potassium 3.9 mmol/L (3.5-5.1); Sodium 130 mmol/L (136-145)
[2020-11-12 09:19] LABS: Alanine Aminotransferase 92 U/L (16-61); Alkaline Phosphatase 105 U/L (45-117); Aspartate Aminotransferase 39 U/L (15-37); Bilirubin, Total 0.7 mg/dL (0.2-1.0); Total Protein 7.9 g/dL (6.4-8.2)
[2020-11-12] MEDS ORDERED: InsuLIN REG 1unit/0.01ml Soln (100units/ml) IV ONE (11:00)
[2020-11-12 11:04] VITALS: BP 119/70
== END 2020-11-12 11:28 | disposition home or self-care (01) ==
LOC: ER 07:57
DX: L03.116 Cellulitis of left lower limb (principal); R07.9 Chest pain, unspecified; E11.9 Type 2 diabetes mellitus without complications; F17.210 Nicotine dependence, cigarettes, uncomplicated; F15.10 Other stimulant abuse, uncomplicated; F12.10 Cannabis abuse, uncomplicated; Z45.2 Encounter for adjustment and management of vascular access device
CPT/HCPCS: 36415; 71045; 80053; 82962; 84484; 85025; 96361; 96374; 99285; J1815; J7030; 36410

== ENCOUNTER 2020-12-28 14:39 | Emergency (ER) | payer OTHER ==
[~2020-12-28] VITALS: Ht 170.2 cm; Wt 56.7 kg
[2020-12-28] MEDS ORDERED: LORazepam 0.5 MG TAB PO ONE (18:45)
[2020-12-28 19:30] VITALS: BP 102/73
== END 2020-12-28 19:50 | disposition home or self-care (01) ==
LOC: ER 14:39
DX: S80.821A Blister (nonthermal), right lower leg, initial encounter (principal); I87.2 Venous insufficiency (chronic) (peripheral); E11.9 Type 2 diabetes mellitus without complications; F17.210 Nicotine dependence, cigarettes, uncomplicated; F12.10 Cannabis abuse, uncomplicated; F15.10 Other stimulant abuse, uncomplicated

== ENCOUNTER 2021-01-19 09:49 | Emergency (ER) | payer OTHER ==
[~2021-01-19] VITALS: Ht 170.2 cm; Wt 56.7 kg
[2021-01-19 09:51] VITALS: BP 101/66
[2021-01-19 10:40] LABS: Basophils # (auto) 0.1 10 ^3/uL (0-0.2); Basophils % (auto) 0.7 % (0.0-2.0); Eosinophils # (auto) 0.2 10 ^3/uL (0-0.8); Hematocrit 40.6 % (41.0-53.0); Hemoglobin 13.6 g/dL (13.5-17.5); Lymphocytes # (auto) 2.4 10 ^3/uL (0.4-5.4); Lymphocytes % (auto) 30.5 % (10.0-50.0); Mean Corpuscular Hemoglobin 29.8 pg (28.0-32.0); Mean Corpuscular Hgb Conc. 33.6 g/dL (32.0-36.0); Mean Corpuscular Volume 88.8 fL (80.0-100.0); Monocytes # (auto) 0.5 10 ^3/uL (0-1.3); Monocytes % (auto) 6.6 % (0.0-12.0); Neutrophils # (auto) 4.7 10 ^3/uL (1.6-8.6); Neutrophils % (auto) 59.2 % (37.0-80.0); Nucleated Red Blood Cells % 0.1 %; Platelet Count (auto) 222 10^3/uL (140-450); Red Blood Cells 4.57 10^6/uL (4.5-5.90); Red Cell Distribution Width 15.1 % (11.8-14.3); White Blood Cell 7.9 10^3/uL (4.4-10.8)
[2021-01-19 11:17] LABS: Potassium 4.4 mmol/L (3.5-5.1)
[2021-01-19 11:24] LABS: Albumin 3.2 g/dL (3.4-5.0); BUN/Creatinine Ratio 24.5; Bilirubin, Total 0.3 mg/dL (0.2-1.0); Calcium 9.2 mg/dL (8.5-10.1); Total Protein 7.4 g/dL (6.4-8.2)
== END 2021-01-19 11:20 | disposition left against medical advice (07) ==
LOC: ER 09:49
DX: E11.622 Type 2 diabetes mellitus with other skin ulcer (principal); L97.829 Non-pressure chronic ulcer of other part of left lower leg with unspecified severity; E11.65 Type 2 diabetes mellitus with hyperglycemia; F17.210 Nicotine dependence, cigarettes, uncomplicated; Z79.4 Long term (current) use of insulin; Z98.890 Other specified postprocedural states
CPT/HCPCS: 36415; 80053; 83605; 85025; 87040